=== PATIENT | male | born 1985 ===

== ENCOUNTER 2025-05-13 14:23 | Outpatient (AMB) | payer BC, SELFPAY ==
--- OUTSIDE RECORDS SUMMARY | 2025-05-10 15:00 | XMS_ITS | Encounter Summary ---
Author Organization [facility] Address [address] [place] [phone] Phone Care Team Providers Care Watch Engineer Name Role Phone Laura, Mariaa BRAUN Primary Care Provider [phone] Encounter Details Date Type Department Care Team (Latest Contact Info) Description 05/10/2025 3:00 PM EDT Telemedicine - audio only Orthopedics [address] [address] Man Grubbs MD [address] [place] [id number] [email or web address] Status post lumbar microdiscectomy (Primary Dx); Spinal stenosis of lumbar region with neurogenic claudication; Spondylolisthesis of lumbar region Social History Tobacco Use Types Packs/Day Years Used Date Smoking Tobacco: Never Smokeless Tobacco: Never Alcohol Use Standard Drinks/Week Comments Yes 0 (1 standard drink = 0.6 oz pur e alcohol) Education Answer Date Recorded Are you interested in more education? Not on alfredo e 2022 Are you concerned about learning? Not on file 2022 No 2022 No 2022 Digital Access Answer Date Recorded No 01/29/2023 No 01/29/2023 Reliable internet access at home? Not on file 01/29/2023 Device with a working camera? Not on file Sex and Gender Information Value Date Recorded Sex Assigned at Male 02/01/2024 6:47 AM EDT Legal Sex Male 10:50 AM EDT Gender Identity Male 02/01/2024 6:47 AM EDT Sexual Orientation Not on file documented as of this encounter Progress Notes * Man Grubbs MD - 05/10/2025 3:00 PM EDT Subjective History of Present Illness Mr. Deon Kumar presents for follow-up of persistent back pain following previous surgery. The patient reports that his back pain has not improved since his last visit, despite significant weight loss of 42 pounds. He notes that the leg pain has decreased, and while some numbness in the leg persists, it is not as severe as it was prior to surgery. Mr. Kumar experiences pain primarily in his back, with minimal leg pain. He reports that the back pain is exacerbated by driving, sitting, and at night. The patient tried a course of prednisone as prescribed at the previous visit but states it did not provide any relief. He denies any significant improvement in his symptoms since the last appointment. The patient's daily functioning appears to be impacted, particularly with activities involving sitting or driving. Medical History - Persistent disc degeneration at L5-S1 - Recurrent disc herniation at L5-S1, bilateral Surgical History - Previous L5-S1 disc surgery Medications and Supplements - Prednisone - Did not provide relief Social History - Occupation: Patient lives far from the medical facility Review of Systems Musculoskeletal: Positive for back pain. Negative for leg pain. Neurological: Positive for numbness in the leg, but improved since surgery. Objective - Diagnostic Test Results and Labs: Images and values have been personally reviewed - MRI findings: - L5-S1: Persistent disc degeneration, Smerles node present (inflammation of disc space and bones),recurrent disc herniation on the right and left Assessment & Plan Deon Kumar presents with persistent back pain and some numbness in the leg following previous surgery, with minimal improvement despite weight loss and prednisone treatment. Persistent disc degeneration at L5-S1 Assessment: MRI reveals persistent disc degeneration at L5-S1 with a Smerles node, indicating inflammation of the disc space and bones. There is also a recurrent disc herniation at L5-S1 on both right and left sides, which does not cause significant nerve impingement. The ongoing disc degeneration is likely the primary cause of the patient's back pain. Previous interventions, including weight loss (42 pounds) and prednisone treatment, have not provided significant relief. The patient experiences pain during various activities, including driving, sitting, and at night, which are common symptoms associated with degenerative disc disease. Plan: - Refer to local oil paint shader or installation coordinator for further evaluation and potential interventions - Recommend continued physical therapy - Encourage further weight loss efforts - Consider pain management injections or nerve ablation procedures as potential future interventions - Discuss possibility of spinal fusion as a last resort if conservative measures fail - Patient to follow up with pain specialist or installation coordinator for treatment plan documented in this encounter Plan of Treatment Not on file documented as of this encounter Visit Diagnoses Diagnosis Status post lumbar microdiscectomy- Primary Other postprocedural status Spinal stenosis of lumbar region with neurogenic claudication Spondylolisthesis of lumbar region documented in this encounter Care Teams Watch Engineer Relationship Specialty Start Date End Date Mariaa Sanchez NP [address] [place] [address] PCP - General Nurse Practitioner 01/23/24 documented as of this encounter Additional Source Comments The information contained in this document represents components of the legal health record. It is not the complete legal health record.[facility]
--- OUTSIDE RECORDS SUMMARY | 2025-05-13 16:47 | XMS_ITS | Clinical Summary ---
Author Organization [facility] Address [address] [place] [phone] Phone Care Team Providers Care Associate Professor Of Forestry Name Role Phone Mariaa Sanchez NP Primary Care Provider [phone] Allergies Active Allergy Reactions Criticality Noted Date Comments Amoxicillin 03/09/2024 hives Medications omeprazole (PRILOSEC) 20 MG capsule 01/12/2019 Active FLOVENT DISKUS 100 mcg/actuation DsDv Inhale into the lungs. 02/03/2024 Active predniSONE (DELTASONE) 20 MG tablet Take 60mg (3 tabs) PO x 2 days , 40mg PO x 2 days, 20mg PO x 2 days 12 tablet 1 03/06/2025 Active Active Problems Problem Noted Date Diagnosed Date Allergic rhinitis 03/09/2024 Encounter for monitoring hilary g-term proton pump inhibitor therapy 03/09/2024 RLS (restless legs syndrome) 03/09/2024 Depression, major, recurrent, in remission 02/02 Overview (03/09/2024): neg mood disorder questionnairephq9;3PHQ9 5resolvedneg mood disorders questioannire Gastroesophageal reflux disease 02/03/2024 Overview (03/09/2024): egd 2004 Low testosterone in male 02/03/2024 Lumbar radiculopathy 02/03/2024 Migraine 02/03/2024 Mild intermittent asthma 02/03/2024 Non-alcoholic fatty liver disease 02/03/2024 Overview (03/09/2024): NEG ANAneg HEP A,B,c ;needfs HEP A,B vaccinesnormal iron,ceruloplasminadvised NO alcohol,nsaids,lose weight Obstructive sleep apnea syndrome 02/03/2024 Overview (03/09/2024): The apneas-hypopnea index was 5.1 per hour. The REM AHI was 13.6 per hour and the NREM AHI was 1.5 per hour. The supine AHI is 8.4 per hour. The number of arousals was 30 for an arousal index of 3.9. Snoring was stgunhju-ym-leob. Bruxism: None.refer polysomnogram Severe obesity 02/03/2024 Benign neoplasm of soft tissue 01/19/2021 H/O gastric bypass 01/16/2015 Encounters Date Type Department Care Team Description 05/10/2025 3:00 PM EDT Telemedicine - audio only Orthopedics [address] [address] Man Grubbs MD Status post lumbar microdiscectomy (Primary Dx); Spinal stenosis of lumbar region with neurogenic claudication; Spondylolisthesis of lumbar region 03/06/2025 10:00 AM EDT Office Visit Orthopedics [address] [address] Man Grubbs MD Status post lumbar microdiscectomy (Primary Dx); Spinal stenosis of lumbar region with neurogenic claudication 03/06/2025 Orders Only Orthopedics [address] [address] Lenora Sierra [place] Status post lumbar microdiscectomy (Primary Dx) from Last 3 Months Family History Medical History Relation Comments Diabetes Unspecified Heart disease Unspecified Infl. arthritis Unspecified Relation Status Comments Unspecified Social History Tobacco Use Types Packs/Day Years Used Date Smoking Tobacco: Never Smokeless Tobacco: Never Tobacco Cessation:Counseling Given: Not Answered Alcohol Use Standard Drinks/Week Comments Yes 0 [...] AM EDT Sexual Orientation Not on file Last Filed Vital Signs Vital Sign Reading Time Taken Comments Blood Pressure - - Pulse - - Temperature - - Respiratory Rate - - Oxygen Saturation - - Inhaled Oxygen Concentration - - Weight 126.1 kg (278 lb) 02/01/2024 2:46 PM EDT Height 180.3 cm (5' 11 ) 02/01/2024 2:46 PM EDT Body Mass Index 38.77 02/01/2024 2:46 PM EDT Plan of Treatment Health Maintenance Due Date Last Done Comments Adult Td,Tdap Booster 1983 LIPID PANEL 1983 DEPRESSION SCREENING 1995 HEPATITIS C SCREENING 12/30/2001 HIV ONE-TIME SCREENING (18-6 5 YEARS) 12/30/2001 PNEUMOCOCCAL VACCINES (0-49 years) (1 of 2 - PCV) 12/30/2002 SCREENING FOR DIABETES 12/30/2018 INFLUENZA VACCINE (#1) 2025 COVID-19 VACCINE (1 - 2023-2 5 season) 2025 SMOKING STATUS SCREENING (On ce After 26 Yrs) Completed 05/12/2025 HEPATITIS A VACCINES Aged Out No long er eligible based on patient's age to complete this topic HIB VACCINES Aged Out No longer eligi ble based on patient's age to complete this topic MENINGOCOCCAL VACCINES (ACWY) Aged Out No longer eligible based on patient's age to complete this topic MENINGOCOCCAL VACCINES (B) Aged Out N o longer eligible based on patient's age to complete this topic Medical Devices Not on file Insurance [facility] OUT STATE PPO [employer] Care Teams Associate Professor Of Forestry Relationship Specialty Start Date End Date Mariaa Sanchez NP [address] [place] [address] PCP - General Nurse Practitioner 01/23/24 Additional Source Comments The information contained in this document represents components of the legal health record. It is not the complete legal health record.[facility]
== END 2025-05-13 14:32 | disposition home or self-care (01) ==
LOC: HO.HMGAL 14:23
PROVIDERS: PCP Internal Medicine; Visit Provider Registered Nurse Emergency
DX: J30.89 Other allergic rhinitis (principal)
CPT/HCPCS: 95117; 95165

== ENCOUNTER 2025-06-26 11:33 | Outpatient (AMB) | payer BC, SELFPAY | END 2025-06-26 11:34 | disposition home or self-care (01) | LOC: HO.HMGAL 11:33 | PROVIDERS: PCP Nurse Practitioner Family; Visit Provider Registered Nurse Emergency | DX: J30.89 Other allergic rhinitis (principal) | CPT/HCPCS: 95117; 95165 ==

== ENCOUNTER 2025-08-07 14:31 | Outpatient (AMB) | payer BC, SELFPAY ==
--- OUTSIDE RECORDS SUMMARY | 2025-08-07 17:22 | XMS_ITS | Clinical Summary ---
Author Organization [facility] Address [address] [place] [address] Phone Care Team Providers Care Full Roll Inspector Name Role Phone Mariaa Sanchez NP Primary Care Provider [phone] Allergies Active Allergy Reactions Criticality Noted Date [...] an arousal index of 3.9. Snoring was gumfkooi-zy-ghiw. Bruxism: None.refer polysomnogram Severe obesity 02/03/2024 Benign neoplasm of soft tissue 01/19/2021 H/O gastric bypass 01/16/2015 Encounters Date Type Department Care Team Description 05/10/2025 3:00 PM EDT Telemedicine - audio only Orthopedics [address] [address] Man Grubbs MD Status post lumbar microdiscectomy (Primary Dx); Spinal stenosis of lumbar region with neurogenic claudication; Spondylolisthesis of lumbar region from Last 3 Months Family History Medical [...] VACCINE (#1) 2025 COVID-19 VACCINE (1 - 2024-2 6 season) 2025 SMOKING STATUS SCREENING (On ce [...] topic Medical Devices Not on file Insurance [facility] OUT OF STATE PPO [employer] Care Teams Full Roll Inspector Relationship Specialty Start Date End Date Mariaa Sanchez NP [address] [place] [address] PCP - General Nurse Practitioner 01/23/24 Additional Source Comments The information contained in this document represents components of the legal health record. It is not the complete legal health record.[facility]
== END 2025-08-07 14:32 | disposition home or self-care (01) ==
LOC: HO.HMGAL 14:31
PROVIDERS: PCP Nurse Practitioner Family; Visit Provider Registered Nurse Emergency
DX: J30.89 Other allergic rhinitis (principal)
CPT/HCPCS: 95117; 95165